=== PATIENT | male | born 1940 | race Caucasian/White ===

== ENCOUNTER → 2017-10-24 | Outpatient (CLI) | payer MEDICARE | END | disposition home or self-care (01) | LOC: CVU 07:32 | PROVIDERS: ATTEND Internal Medicine | DX: E11.40 Type 2 diabetes mellitus with diabetic neuropathy, unspecified (principal); R20.0 Anesthesia of skin; R09.89 Other specified symptoms and signs involving the circulatory and respiratory systems; E78.5 Hyperlipidemia, unspecified; Z87.891 Personal history of nicotine dependence; Z95.2 Presence of prosthetic heart valve | CPT/HCPCS: 93922 ==

== ENCOUNTER 2018-09-16 15:39 | Outpatient (CLI) | payer MEDICARE ==
[2018-09-16] MEDS ORDERED: OMNIPAQUE 350 MG/ML, 150 ML BOTTLE ONE (17:13)
== END 2018-09-28 13:05 | disposition home or self-care (01) ==
LOC: RAD 15:39
PROVIDERS: ATTEND Physician Assistant Surgical
DX: N26.1 Atrophy of kidney (terminal) (principal); N20.0 Calculus of kidney; I70.1 Atherosclerosis of renal artery; R31.0 Gross hematuria
CPT/HCPCS: 74178; Q9967

== ENCOUNTER 2019-03-15 05:29 | Day surgery (SDC) | payer MEDICARE ==
[2019-03-02 14:33] VITALS: BP 133/66
[~2019-03-15] VITALS: Ht 176.5 cm; Wt 108.8 kg
[~2019-03-15 05:29] MED LIST: AMLO-150 PO; AREDS PO; CARV12.52 PO; CHLO25TA PO; GLIP5TAB22 PO; HYDR-3245 PO; INSU100V8 SQ; LISI40TA PO; METF500T17 PO; SIMV10TA3 PO; WARF-36 PO
[2019-03-15] MEDS ORDERED: LACTATED RINGERS 1,000 ML IV SCH (05:57)
[2019-03-15 06:01] VITALS: BP 133/66
[2019-03-15 06:44] LABS: INTERNATIONAL NORMALIZED RATIO 1.23 (0.93-1.1); PROTHROMBIN TIME 12.8 Seconds (9.6-11.5)
[2019-03-15] MEDS ORDERED: D5%-0.9% NACL 1,000 ML IV SCH (07:00)
[2019-03-15] MEDS ORDERED: DEXAMETHASONE 4 MG/ML, 1ML ONE (07:11)
[2019-03-15] MEDS ORDERED: FENTANYL PF 250 MCG/5ML ONE (07:11)
[2019-03-15] MEDS ORDERED: PROPOFOL 10 MG/ML, 20ML ONE (07:11)
[2019-03-15] MEDS ORDERED: GLYCOPYRROLATE 0.2MG/1ML, 5ML ONE (07:11)
[2019-03-15] MEDS ORDERED: ROCURONIUM 10MG/ML,5ML ONE (07:11)
[2019-03-15] MEDS ORDERED: LIDOCAINE 2% 100MG/5ML SYRINGE ONE (07:22)
[2019-03-15] MEDS ORDERED: AMPICILLIN 2 GM ONE (07:32)
[2019-03-15] MEDS ORDERED: GENTAMICIN 80 MG/2 ML ONE (07:32)
[2019-03-15] MEDS ORDERED: MORPHINE SULFATE 4 MG/ML, 1ML IVPush PRN (08:00)
[2019-03-15] MEDS ORDERED: MIDAZOLAM 1 MG/ML, 2ML IV PRN (08:00)
[2019-03-15] MEDS ORDERED: HYDROmorphone 2 MG/ML, 1ML IVPush PRN (08:00)
[2019-03-15] MEDS ORDERED: LABETALOL 5MG/ML, 20ML IV PRN (08:00)
[2019-03-15] MEDS ORDERED: EPHEDRINE 50 MG/ML, 1ML IVPush PRN (08:00)
[2019-03-15] MEDS ORDERED: MEPERIDINE/PF 25MG/0.5ML IVPush PRN (08:00)
[2019-03-15] MEDS ORDERED: FENTANYL PF 100 MCG/2ML IV PRN (08:00)
[2019-03-15] MEDS ORDERED: METOCLOPRAMIDE 5 MG/ML, 2ML IV PRN (08:00)
[2019-03-15] MEDS ORDERED: OXYcodone 5 MG/5 ML ORAL.SOL UDC PO PRN (08:00)
[2019-03-15] MEDS ORDERED: hydrALAzine 20 MG/ML, 1ML IV PRN (08:00)
[2019-03-15] MEDS ORDERED: DIPHENHYDRAMINE 50 MG/ML, 1ML IVPush PRN (08:00)
[2019-03-15] MEDS ORDERED: ALBUTEROL/IPRATROPIUM 2.5MG/0.5MG, 3 ML NPPB PRN (08:00)
[2019-03-15] MEDS ORDERED: ONDANSETRON ODT 8 MG PO PRN (08:00)
[2019-03-15] MEDS ORDERED: DEXAMETHASONE 4 MG/ML, 1ML IV PRN (08:00)
[2019-03-15] MEDS ORDERED: EPHEDRINE 50 MG/ML, 1ML ONE (08:06)
[2019-03-15] MEDS ORDERED: FLUORESCEIN SODIUM 500 MG/5 ML ONE (08:10)
[2019-03-15] MEDS ORDERED: ACETAMINOPHEN 325 MG TABLET ONE (09:26)
[2019-03-15] MEDS ORDERED: ACETAMINOPHEN 325 MG TABLET PO PRN (09:30)
== END 2019-03-15 11:30 | disposition home or self-care (01) ==
LOC: OUT 05:29
PROVIDERS: ATTEND Urology
DX: N35.912 Unspecified bulbous urethral stricture, male (principal); N30.31 Trigonitis with hematuria; N40.1 Benign prostatic hyperplasia with lower urinary tract symptoms; N39.498 Other specified urinary incontinence; I10 Essential (primary) hypertension; E11.9 Type 2 diabetes mellitus without complications; Z79.4 Long term (current) use of insulin; Z79.01 Long term (current) use of anticoagulants; Z79.899 Other long term (current) drug therapy; Z85.47 Personal history of malignant neoplasm of testis; Z90.49 Acquired absence of other specified parts of digestive tract; Z96.641 Presence of right artificial hip joint; Z95.2 Presence of prosthetic heart valve; Z98.890 Other specified postprocedural states; Z84.1 Family history of disorders of kidney and ureter; Z80.0 Family history of malignant neoplasm of digestive organs; Z82.49 Family history of ischemic heart disease and other diseases of the circulatory system
CPT/HCPCS: 36415; 52204; 52276; 82962; 85610; 85730; 88305; C1769; J0290; J1100; J1580; J2704; J3010; J7042; J7120

== ENCOUNTER 2019-06-27 07:29 | Inpatient (IN) | payer MEDICARE ==
[2019-06-27] VITALS (11 sets, daily range): BP systolic 111–168; BP diastolic 40–85
[~2019-06-27] VITALS: Ht 177.8 cm; Wt 106.0 kg
--- NOTE | 2019-06-27 07:38 | NUR ---
BIB EMS FOR POSSIBLE BLOODY STOOL. PT STATES HE HAD BLOODY NOSE YESTERDAY. PT VS STABLE. SOME NAUSEA, GIVEN ZOFRAN BY EMS. MD AT BEDISED. PT IS NOT IN DISTRESS. AT BEDSIDE. NO ACTIVE BLEEDING
[2019-06-27] MEDS ORDERED: SODIUM CHLORIDE FLUSH 10ML SYR IVF ONE (08:00)
[2019-06-27 08:16] LABS: ALBUMIN 2.9 g/dL (3.4-5.0); ANION GAP 10 mmol/L (5-15); CALCIUM 9.5 mg/dL (8.5-10.1); CHLORIDE 105 mmol/L (98-107)
[2019-06-27 08:18] LABS: ALANINE AMINOTRANSFERASE 9 U/L (12-78); ALKALINE PHOSPHATASE 51 U/L (45-117); BILIRUBIN,TOTAL 0.4 mg/dL (0.2-1.0); MEAN CORPUSCULAR HEMOGLOBIN 28.9 pg (27.5-34.5); MEAN CORPUSCULAR HGB CONC 33.2 g/dL (33.2-36.2); MEAN CORPUSCULAR VOLUME 87.1 fL (81-97); PLATELET COUNT 199 x10^3/uL (130-400); RED BLOOD COUNT 2.56 x10^6/uL (4.38-5.82); RED CELL DISTRIBUTION WIDTH 16.3 % (9.4-14.8); TOTAL PROTEIN 6.5 g/dL (6.4-8.2)
--- NOTE | 2019-06-27 08:23 | NUR ---
CRIT LAB VALUES. AWARE.
[2019-06-27 08:33] LABS: BASOPHILS # (AUTO) 0.01 x10^3/uL (0-0.1); BASOPHILS % (AUTO) 0 % (0-1); EOSINOPHILS # (AUTO) 0.24 x10^3/uL (0-0.4); EOSINOPHILS % (AUTO) 5 % (1-7); LYMPHOCYTES # (AUTO) 0.86 x10^3/uL (1-3.4); LYMPHOCYTES % (AUTO) 17 % (22-44); MD MORPH REVIEW ONLY; MONOCYTES # (AUTO) 0.82 x10^3/uL (0.2-0.8); MONOCYTES % (AUTO) 16 % (2-9); NEUTROPHILS # (AUTO) 3.24 x10^3/uL (1.8-6.8); NEUTROPHILS % (AUTO) 63 % (42-75)
[2019-06-27 08:48] LABS: INTERNATIONAL NORMALIZED RATIO > 12.00 (0.93-1.1); PROTHROMBIN TIME > 148.7 Seconds (9.6-11.5)
[2019-06-27 08:50] LABS: <PLATELET ESTIMATE> ADEQUATE; <PLT MORPHOLOGY> NORMAL PLT MORPH; ANISOCYTOSIS 1+; HYPOCHROMIA 1+; STOMATOCYTES 1+
--- NOTE | 2019-06-27 09:10 | NUR ---
FFP TRANSFUSION STARTED. SECOND IV ESTABLISHED. PT VS STABLE. PT ASSISTED TO COMMODE. GINNA COLOR STOOL
--- NOTE | 2019-06-27 09:41 | NUR ---
RBC STARTED. MD AT BEDSIDE. PT IS RESTING COMFORTABLE. VS STABLE.
[2019-06-27] MEDS ORDERED: PHYTONADIONE 10 MG/ML, 1ML ONE (09:53)
[2019-06-27] MEDS ORDERED: ONDANSETRON 2MG/ML, 2ML ONE ×2 (09:53→17:21)
--- NOTE | 2019-06-27 09:59 | NUR ---
REPORT GIVEN TO AMRIK
[2019-06-27] MEDS ORDERED: PHYTONADIONE 10 MG/ML, 1ML IV ONE (10:00)
[2019-06-27] MEDS ORDERED: ACETAMINOPHEN 325 MG TABLET PO PRN (12:00)
[2019-06-27] MEDS: D5%-0.45% NACL 1,000 ML IV SCH ×2 (12:02→20:38)
[2019-06-27 14:35] LABS: HEMOGLOBIN A1C 5.1 % (4.2-6.3)
[2019-06-27 15:58] LABS: CLOSTRIDIUM DIFFICILE ANTIGEN NEGATIVE; CLOSTRIDIUM DIFFICILE TOXIN NEGATIVE (Negative)
[2019-06-27] MEDS: INSULIN LISPRO 100 UNITS/ML, PEN SQ-INSULIN SCH ×2 (16:00→20:38)
[2019-06-27] MEDS: ONDANSETRON 2MG/ML, 2ML IVPush PRN (17:25)
[2019-06-27] MEDS: SIMVASTATIN 10 MG TABLET PO SCH (20:37)
[2019-06-27] MEDS: CARVEDILOL 12.5 MG TABLET PO SCH (20:37)
[2019-06-28 01:33] VITALS: BP 128/51
[2019-06-28 02:34] LABS: INTERNATIONAL NORMALIZED RATIO 1.3 (0.93-1.1); PROTHROMBIN TIME 13.5 Seconds (9.6-11.5)
[2019-06-28 02:36] LABS: ALBUMIN 2.6 g/dL (3.4-5.0); ANION GAP 8 mmol/L (5-15); CALCIUM 8.5 mg/dL (8.5-10.1); CHLORIDE 108 mmol/L (98-107); CREATININE 2.66 mg/dL (0.7-1.3)
[2019-06-28] MEDS: D5%-0.45% NACL 1,000 ML IV SCH (05:52)
[2019-06-28 06:40] VITALS: BP 129/59
[2019-06-28] MEDS: INSULIN LISPRO 100 UNITS/ML, PEN SQ-INSULIN SCH ×4 (07:00→20:32)
[2019-06-28] MEDS: CARVEDILOL 12.5 MG TABLET PO SCH ×2 (08:25→20:31)
[2019-06-28] MEDS: AMLODIPINE 5 MG TABLET PO SCH (08:25)
[2019-06-28] MEDS: SODIUM CHLORIDE 0.9% 1,000 ML IV SCH (08:25)
[2019-06-28] MEDS ORDERED: GLIPizide ER 5 MG TABLET PO SCH (09:00)
[2019-06-28 12:43] VITALS: BP 117/52
[2019-06-28] MEDS ORDERED: HYDROcodone/APAP 10/325 MG TABLET ONE (15:34)
[2019-06-28] MEDS: HYDROcodone/APAP 10/325 MG TABLET PO PRN (15:38)
[2019-06-28] MEDS ORDERED: MOVIPREP POWDER 1 PREP KIT PO ONE (18:30)
[2019-06-28 19:03] VITALS: BP 157/73
[2019-06-28] MEDS: SIMVASTATIN 10 MG TABLET PO SCH (20:31)
[2019-06-28] MEDS: ONDANSETRON 2MG/ML, 2ML IVPush PRN (21:32)
[2019-06-29] MEDS: SODIUM CHLORIDE 0.9% 1,000 ML IV SCH (01:30)
[2019-06-29 01:41] VITALS: BP 149/63
[2019-06-29 04:47] LABS: BASOPHILS # (AUTO) 0.01 x10^3/uL (0-0.1); BASOPHILS % (AUTO) 0 % (0-1); EOSINOPHILS # (AUTO) 0.24 x10^3/uL (0-0.4); EOSINOPHILS % (AUTO) 6 % (1-7); LYMPHOCYTES # (AUTO) 0.79 x10^3/uL (1-3.4); LYMPHOCYTES % (AUTO) 20 % (22-44); MD NO; MEAN CORPUSCULAR HEMOGLOBIN 29.4 pg (27.5-34.5); MEAN CORPUSCULAR HGB CONC 33.6 g/dL (33.2-36.2); MEAN CORPUSCULAR VOLUME 87.3 fL (81-97); MEAN PLATELET VOLUME 7.4 fL (7.4-10.4); MONOCYTES # (AUTO) 0.67 x10^3/uL (0.2-0.8); MONOCYTES % (AUTO) 17 % (2-9); NEUTROPHILS # (AUTO) 2.19 x10^3/uL (1.8-6.8); NEUTROPHILS % (AUTO) 56 % (42-75); PLATELET COUNT 178 x10^3/uL (130-400); RED BLOOD COUNT 2.87 x10^6/uL (4.38-5.82); RED CELL DISTRIBUTION WIDTH 17.1 % (9.4-14.8)
[2019-06-29 04:49] LABS: ANION GAP 9 mmol/L (5-15); CALCIUM 8.9 mg/dL (8.5-10.1); CHLORIDE 111 mmol/L (98-107); CREATININE 2.25 mg/dL (0.7-1.3); TOTAL IRON BINDING CAPACITY 193 mcg/dL (250-450)
[2019-06-29 04:50] LABS: % IRON SATURATION 17 % (20-55); IRON LEVEL 32 mcg/dL (65-175)
[2019-06-29] MEDS: INSULIN LISPRO 100 UNITS/ML, PEN SQ-INSULIN SCH ×4 (07:00→21:00)
[2019-06-29 07:03] VITALS: BP 129/91
[2019-06-29] MEDS: LACTOBACILLUS CHEW TABLET PO SCH ×3 (08:00→21:17)
[2019-06-29] MEDS: CARVEDILOL 12.5 MG TABLET PO SCH ×2 (08:01→21:17)
[2019-06-29] MEDS: FERROUS SULFATE 325 MG TABLET PO SCH (08:01)
[2019-06-29] MEDS: AMLODIPINE 5 MG TABLET PO SCH (08:02)
[2019-06-29] MEDS ORDERED: PROPOFOL 10 MG/ML, 20ML ONE (11:13)
[2019-06-29] MEDS ORDERED: FENTANYL PF 100 MCG/2ML ONE ×2 (12:09→13:49)
[2019-06-29] MEDS: FENTANYL PF 100 MCG/2ML IV PRN ×2 (12:11→12:20)
[2019-06-29] MEDS ORDERED: ACETAMINOPHEN 325 MG TABLET PO PRN (12:30)
[2019-06-29] MEDS ORDERED: ONDANSETRON 2MG/ML, 2ML IV PRN (12:30)
[2019-06-29] MEDS ORDERED: LIDOCAINE 1%, 10ML ONE (13:42)
[2019-06-29] MEDS ORDERED: MIDAZOLAM 1 MG/ML, 5ML ONE (13:49)
[2019-06-29 14:53] VITALS: BP 157/63
[2019-06-29 19:14] VITALS: BP 128/61
[2019-06-29] MEDS ORDERED: LACTOBACILLUS CHEW TABLET PO SCH (21:00)
[2019-06-29] MEDS: SIMVASTATIN 10 MG TABLET PO SCH (21:16)
[2019-06-30 00:57] VITALS: BP 130/55
[2019-06-30 05:21] LABS: BASOPHILS # (AUTO) 0.01 x10^3/uL (0-0.1); BASOPHILS % (AUTO) 0 % (0-1); EOSINOPHILS # (AUTO) 0.16 x10^3/uL (0-0.4); EOSINOPHILS % (AUTO) 4 % (1-7); LYMPHOCYTES # (AUTO) 0.72 x10^3/uL (1-3.4); LYMPHOCYTES % (AUTO) 18 % (22-44); MD NO; MEAN CORPUSCULAR HEMOGLOBIN 29.6 pg (27.5-34.5); MEAN CORPUSCULAR HGB CONC 33.8 g/dL (33.2-36.2); MEAN CORPUSCULAR VOLUME 87.4 fL (81-97); MEAN PLATELET VOLUME 7.8 fL (7.4-10.4); MONOCYTES # (AUTO) 0.65 x10^3/uL (0.2-0.8); MONOCYTES % (AUTO) 16 % (2-9); NEUTROPHILS # (AUTO) 2.44 x10^3/uL (1.8-6.8); NEUTROPHILS % (AUTO) 61 % (42-75); PLATELET COUNT 185 x10^3/uL (130-400); RED BLOOD COUNT 2.82 x10^6/uL (4.38-5.82)
[2019-06-30 05:27] LABS: ANION GAP 10 mmol/L (5-15); CALCIUM 9.1 mg/dL (8.5-10.1); CHLORIDE 111 mmol/L (98-107); CREATININE 1.94 mg/dL (0.7-1.3)
[2019-06-30] MEDS: OMEPRAZOLE 20 MG CAPSULE.DR PO SCH (05:55)
[2019-06-30] MEDS: INSULIN LISPRO 100 UNITS/ML, PEN SQ-INSULIN SCH ×4 (07:00→20:28)
[2019-06-30] MEDS ORDERED: HEPARIN 5,000 UNITS/ML, 1ML IV ONE (08:00)
[2019-06-30 09:15] VITALS: BP 153/72
[2019-06-30] MEDS: LACTOBACILLUS CHEW TABLET PO SCH ×3 (09:27→22:17)
[2019-06-30] MEDS: CARVEDILOL 12.5 MG TABLET PO SCH ×2 (09:27→22:17)
[2019-06-30] MEDS: HEPARIN 25,000 UNITS/500ML PMX 500 ML IV PRN (10:30)
[2019-06-30] MEDS: HYDROcodone/APAP 10/325 MG TABLET PO PRN (10:40)
[2019-06-30 14:55] VITALS: BP 147/67
[2019-06-30] MEDS: HEPARIN 5,000 UNITS/ML, 1ML IV PRN (17:35)
[2019-06-30 19:11] VITALS: BP 106/59
[2019-06-30] MEDS: SODIUM CHLORIDE 0.9% 1,000 ML IV SCH ×2 (20:27)
[2019-06-30] MEDS: SIMVASTATIN 10 MG TABLET PO SCH (22:17)
[2019-07-01 00:23] VITALS: BP 107/68
[2019-07-01] MEDS: ONDANSETRON ODT 4 MG PO PRN ×2 (00:55→10:06)
[2019-07-01] MEDS: HEPARIN 5,000 UNITS/ML, 1ML IV PRN ×2 (00:56→09:58)
[2019-07-01 05:49] LABS: BASOPHILS % (AUTO) 0 % (0-1); EOSINOPHILS # (AUTO) 0.16 x10^3/uL (0-0.4); EOSINOPHILS % (AUTO) 4 % (1-7); LYMPHOCYTES # (AUTO) 0.73 x10^3/uL (1-3.4); LYMPHOCYTES % (AUTO) 17 % (22-44); MD NO; MEAN CORPUSCULAR HEMOGLOBIN 29.8 pg (27.5-34.5); MEAN CORPUSCULAR HGB CONC 33.4 g/dL (33.2-36.2); MEAN CORPUSCULAR VOLUME 89.1 fL (81-97); MEAN PLATELET VOLUME 8.5 fL (7.4-10.4); MONOCYTES # (AUTO) 0.66 x10^3/uL (0.2-0.8); MONOCYTES % (AUTO) 15 % (2-9); NEUTROPHILS # (AUTO) 2.77 x10^3/uL (1.8-6.8); NEUTROPHILS % (AUTO) 64 % (42-75); PLATELET COUNT 182 x10^3/uL (130-400); RED BLOOD COUNT 2.88 x10^6/uL (4.38-5.82); RED CELL DISTRIBUTION WIDTH 17.3 % (9.4-14.8)
[2019-07-01 06:00] LABS: ANION GAP 8 mmol/L (5-15); CALCIUM 9.4 mg/dL (8.5-10.1); CHLORIDE 108 mmol/L (98-107); CREATININE 1.81 mg/dL (0.7-1.3)
[2019-07-01] MEDS: HEPARIN 25,000 UNITS/500ML PMX 500 ML IV PRN (06:22)
[2019-07-01] MEDS: OMEPRAZOLE 20 MG CAPSULE.DR PO SCH (06:22)
[2019-07-01] MEDS ORDERED: WARFARIN MECH. VALVE PROTOCOL 2.5 to 3.5 XX PRN (07:30)
[2019-07-01 07:52] LABS: INTERNATIONAL NORMALIZED RATIO 1.27 (0.93-1.1); PROTHROMBIN TIME 13.2 Seconds (9.6-11.5)
[2019-07-01] MEDS: CARVEDILOL 12.5 MG TABLET PO SCH ×2 (08:38→22:08)
[2019-07-01] MEDS: FERROUS SULFATE 325 MG TABLET PO SCH (08:38)
[2019-07-01] MEDS: LACTOBACILLUS CHEW TABLET PO SCH ×3 (08:38→22:08)
[2019-07-01] MEDS: INSULIN LISPRO 100 UNITS/ML, PEN SQ-INSULIN SCH ×4 (10:22→21:00)
[2019-07-01] MEDS: HYDROcodone/APAP 10/325 MG TABLET PO PRN (10:22)
[2019-07-01 10:42] VITALS: BP 133/68
[2019-07-01] MEDS ORDERED: SIMETHICONE DROPS 40 MG/0.6 ML BOTTLE PO PRN (13:30)
[2019-07-01] MEDS: SIMETHICONE 80 MG CHEW TAB PO PRN ×2 (14:00→22:13)
[2019-07-01 15:57] VITALS: BP 155/67
[2019-07-01] MEDS ORDERED: WARFARIN 7.5 MG TABLET PO-COUM ONE (18:00)
[2019-07-01 19:36] VITALS: BP 146/67
[2019-07-01] MEDS: SIMVASTATIN 10 MG TABLET PO SCH (22:08)
[2019-07-01] MEDS: ACETAMINOPHEN 325 MG TABLET PO PRN (22:13)
[2019-07-02 00:46] VITALS: BP 124/64
[2019-07-02] MEDS: HEPARIN 25,000 UNITS/500ML PMX 500 ML IV PRN ×2 (00:57→19:31)
[2019-07-02] MEDS: ONDANSETRON ODT 4 MG PO PRN (01:24)
[2019-07-02 05:12] LABS: INTERNATIONAL NORMALIZED RATIO 1.62 (0.93-1.1); PROTHROMBIN TIME 16.7 Seconds (9.6-11.5)
[2019-07-02 05:17] LABS: BASOPHILS % (AUTO) 0 % (0-1); EOSINOPHILS % (AUTO) 2 % (1-7); LYMPHOCYTES % (AUTO) 13 % (22-44); MD NO; MEAN CORPUSCULAR HEMOGLOBIN 29.7 pg (27.5-34.5); MEAN CORPUSCULAR HGB CONC 33.3 g/dL (33.2-36.2); MEAN CORPUSCULAR VOLUME 89.1 fL (81-97); MEAN PLATELET VOLUME 8.4 fL (7.4-10.4); MONOCYTES # (AUTO) 0.67 x10^3/uL (0.2-0.8); MONOCYTES % (AUTO) 14 % (2-9); NEUTROPHILS # (AUTO) 3.45 x10^3/uL (1.8-6.8); NEUTROPHILS % (AUTO) 72 % (42-75); PLATELET COUNT 187 x10^3/uL (130-400); RED BLOOD COUNT 2.79 x10^6/uL (4.38-5.82); RED CELL DISTRIBUTION WIDTH 17.2 % (9.4-14.8)
[2019-07-02] MEDS: HEPARIN 5,000 UNITS/ML, 1ML IV PRN (05:59)
[2019-07-02] MEDS: OMEPRAZOLE 20 MG CAPSULE.DR PO SCH (05:59)
[2019-07-02 07:32] VITALS: BP 145/71
[2019-07-02] MEDS: INSULIN LISPRO 100 UNITS/ML, PEN SQ-INSULIN SCH ×4 (08:52→21:17)
[2019-07-02] MEDS ORDERED: METHYLNALTREXONE 12 MG/0.6 ML SQ ONE (09:30)
[2019-07-02] MEDS: LACTOBACILLUS CHEW TABLET PO SCH ×3 (09:48→21:16)
[2019-07-02] MEDS: CARVEDILOL 12.5 MG TABLET PO SCH ×2 (09:48→21:17)
[2019-07-02] MEDS: ACETAMINOPHEN 325 MG TABLET PO PRN (09:48)
[2019-07-02] MEDS ORDERED: MORPHINE SULFATE 4 MG/ML, 1ML ONE (11:45)
[2019-07-02] MEDS ORDERED: morphine SULFATE 10 MG/ML, 1ML IVPush PRN (12:00)
[2019-07-02 12:29] LABS: BILIRUBIN, DIRECT 0.3 mg/dL (0.1-0.2); BILIRUBIN,INDIRECT 0.3 mg/dL (0.0-2.0); BILIRUBIN,TOTAL 0.6 mg/dL (0.2-1.0); TOTAL PROTEIN 6.7 g/dL (6.4-8.2)
[2019-07-02 14:05] VITALS: BP 142/64
[2019-07-02] MEDS ORDERED: FENTANYL PF 100 MCG/2ML ONE ×2 (14:34)
[2019-07-02] MEDS ORDERED: NALOXONE 1 MG/ML, 2ML ONE (14:34)
[2019-07-02] MEDS ORDERED: WARFARIN 10 MG TABLET PO-COUM SCH (18:00)
[2019-07-02 20:55] VITALS: BP 134/63
[2019-07-02] MEDS: MORPHINE SULFATE 4 MG/ML, 1ML IVPush PRN (21:16)
[2019-07-02] MEDS: SIMVASTATIN 10 MG TABLET PO SCH (21:17)
[2019-07-02] MEDS: SENNA/DOCUSATE TABLET PO SCH (21:17)
[2019-07-03 00:19] VITALS: BP 117/55
[2019-07-03 04:57] LABS: BASOPHILS # (AUTO) 0.01 x10^3/uL (0-0.1); BASOPHILS % (AUTO) 0 % (0-1); EOSINOPHILS # (AUTO) 0.08 x10^3/uL (0-0.4); EOSINOPHILS % (AUTO) 2 % (1-7); LYMPHOCYTES # (AUTO) 0.64 x10^3/uL (1-3.4); LYMPHOCYTES % (AUTO) 13 % (22-44); MD NO; MEAN CORPUSCULAR HEMOGLOBIN 29.7 pg (27.5-34.5); MEAN CORPUSCULAR HGB CONC 33.4 g/dL (33.2-36.2); MEAN CORPUSCULAR VOLUME 88.9 fL (81-97); MEAN PLATELET VOLUME 8.4 fL (7.4-10.4); MONOCYTES # (AUTO) 0.78 x10^3/uL (0.2-0.8); MONOCYTES % (AUTO) 15 % (2-9); NEUTROPHILS # (AUTO) 3.56 x10^3/uL (1.8-6.8); NEUTROPHILS % (AUTO) 70 % (42-75); PLATELET COUNT 174 x10^3/uL (130-400); RED BLOOD COUNT 2.66 x10^6/uL (4.38-5.82); RED CELL DISTRIBUTION WIDTH 17.5 % (9.4-14.8)
[2019-07-03] MEDS: OMEPRAZOLE 20 MG CAPSULE.DR PO SCH (06:10)
[2019-07-03] MEDS: MORPHINE SULFATE 4 MG/ML, 1ML IVPush PRN ×3 (06:11→19:13)
[2019-07-03] MEDS: SODIUM CHLORIDE 0.9% 1,000 ML IV SCH (08:00)
[2019-07-03 08:32] VITALS: BP 130/66
[2019-07-03] MEDS: INSULIN LISPRO 100 UNITS/ML, PEN SQ-INSULIN SCH ×4 (09:22→20:40)
[2019-07-03] MEDS: CARVEDILOL 12.5 MG TABLET PO SCH ×2 (09:22→20:40)
[2019-07-03] MEDS: LACTOBACILLUS CHEW TABLET PO SCH ×3 (09:22→20:40)
[2019-07-03] MEDS: FERROUS SULFATE 325 MG TABLET PO SCH (09:22)
[2019-07-03] MEDS: HEPARIN 25,000 UNITS/500ML PMX 500 ML IV PRN (10:47)
[2019-07-03 12:59] VITALS: BP 118/54
[2019-07-03 19:23] VITALS: BP 134/72
[2019-07-03] MEDS: SENNA/DOCUSATE TABLET PO SCH (20:40)
[2019-07-03] MEDS: SIMVASTATIN 10 MG TABLET PO SCH (20:40)
[2019-07-04] MEDS: SODIUM CHLORIDE 0.9% 1,000 ML IV SCH (00:58)
[2019-07-04 01:05] VITALS: BP 124/72
[2019-07-04] MEDS: MORPHINE SULFATE 4 MG/ML, 1ML IVPush PRN ×3 (01:21→15:40)
[2019-07-04 02:00] LABS: MICROSCOPIC INDICATED
[2019-07-04 02:02] LABS: CULTURE INDICATED? NO
[2019-07-04] MEDS: HEPARIN 25,000 UNITS/500ML PMX 500 ML IV PRN (03:19)
[2019-07-04 04:50] LABS: MEAN CORPUSCULAR HEMOGLOBIN 29.7 pg (27.5-34.5); MEAN CORPUSCULAR VOLUME 89.8 fL (81-97); MEAN PLATELET VOLUME 8.4 fL (7.4-10.4); PLATELET COUNT 166 x10^3/uL (130-400); RED BLOOD COUNT 2.54 x10^6/uL (4.38-5.82); RED CELL DISTRIBUTION WIDTH 17.9 % (9.4-14.8)
[2019-07-04] MEDS: HEPARIN 5,000 UNITS/ML, 1ML IV PRN (05:13)
[2019-07-04] MEDS: OMEPRAZOLE 20 MG CAPSULE.DR PO SCH (05:13)
[2019-07-04 05:51] LABS: BASOPHILS # (AUTO) 0.01 x10^3/uL (0-0.1); BASOPHILS % (AUTO) 0 % (0-1); EOSINOPHILS # (AUTO) 0.09 x10^3/uL (0-0.4); EOSINOPHILS % (AUTO) 2 % (1-7); LYMPHOCYTES # (AUTO) 0.62 x10^3/uL (1-3.4); LYMPHOCYTES % (AUTO) 12 % (22-44); MD SCAN; MONOCYTES # (AUTO) 0.86 x10^3/uL (0.2-0.8); MONOCYTES % (AUTO) 17 % (2-9); NEUTROPHILS % (AUTO) 68 % (42-75)
[2019-07-04 07:42] VITALS: BP 103/53
[2019-07-04] MEDS: INSULIN LISPRO 100 UNITS/ML, PEN SQ-INSULIN SCH ×3 (09:08→16:00)
[2019-07-04] MEDS: LACTOBACILLUS CHEW TABLET PO SCH ×2 (09:09→16:00)
[2019-07-04] MEDS: CARVEDILOL 12.5 MG TABLET PO SCH (09:09)
[2019-07-04] MEDS ORDERED: ACID1TAB7 PO (11:08)
[2019-07-04] MEDS ORDERED: SIME80TA16 PO (11:08)
[2019-07-04] MEDS ORDERED: SENN-193 PO (11:08)
[2019-07-04] MEDS ORDERED: OMEP-110 PO (11:08)
[2019-07-04] MEDS ORDERED: ACET325T26 PO (11:08)
[2019-07-04] MEDS ORDERED: FERR-51 PO (11:08)
[2019-07-04 14:45] VITALS: BP 124/60
== END 2019-07-04 17:35 | disposition hospice, home (50) | DRG 377 ==
LOC: ED 08:13 → EDIP 09:36 → 4WST 10:44
PROVIDERS: ADMIT Internal Medicine; ATTEND Internal Medicine
PROC: 30233R1 Transfusion of Nonautologous Platelets into Peripheral Vein, Percutaneous Approach (ICD-10-PCS; 2019-06-27)
PROC: 30233N1 Transfusion of Nonautologous Red Blood Cells into Peripheral Vein, Percutaneous Approach (ICD-10-PCS; 2019-06-27)
PROC: 0JB53ZX Excision of Left Neck Subcutaneous Tissue and Fascia, Percutaneous Approach, Diagnostic (ICD-10-PCS; 2019-06-29)
PROC: 0DB78ZX Excision of Stomach, Pylorus, Via Natural or Artificial Opening Endoscopic, Diagnostic (ICD-10-PCS; principal; 2019-06-29 17:45)
PROC: 0DJD8ZZ Inspection of Lower Intestinal Tract, Via Natural or Artificial Opening Endoscopic (ICD-10-PCS; 2019-06-29 17:45)
PROC: 07DR3ZX Extraction of Iliac Bone Marrow, Percutaneous Approach, Diagnostic (ICD-10-PCS; 2019-07-02)
DX: K29.01 Acute gastritis with bleeding (principal); N17.0 Acute kidney failure with tubular necrosis; C83.30 Diffuse large B-cell lymphoma, unspecified site; D68.32 Hemorrhagic disorder due to extrinsic circulating anticoagulants; D62 Acute posthemorrhagic anemia; D68.69 Other thrombophilia; K56.7 Ileus, unspecified; N18.4 Chronic kidney disease, stage 4 (severe); K92.1 Melena; K57.30 Diverticulosis of large intestine without perforation or abscess without bleeding; E11.22 Type 2 diabetes mellitus with diabetic chronic kidney disease; E11.65 Type 2 diabetes mellitus with hyperglycemia; E63.9 Nutritional deficiency, unspecified; E66.9 Obesity, unspecified; E78.5 Hyperlipidemia, unspecified; G47.30 Sleep apnea, unspecified; I12.9 Hypertensive chronic kidney disease with stage 1 through stage 4 chronic kidney disease, or unspecified chronic kidney disease; I44.7 Left bundle-branch block, unspecified; K22.2 Esophageal obstruction; K64.8 Other hemorrhoids; K80.20 Calculus of gallbladder without cholecystitis without obstruction; Z96.642 Presence of left artificial hip joint; M19.90 Unspecified osteoarthritis, unspecified site; E79.0 Hyperuricemia without signs of inflammatory arthritis and tophaceous disease; N27.0 Small kidney, unilateral; R04.0 Epistaxis; T45.515A Adverse effect of anticoagulants, initial encounter; Z79.01 Long term (current) use of anticoagulants; Z79.4 Long term (current) use of insulin; Z80.0 Family history of malignant neoplasm of digestive organs; Z86.010 Personal history of colon polyps; Z87.891 Personal history of nicotine dependence; Z90.411 Acquired partial absence of pancreas; Z95.2 Presence of prosthetic heart valve; Z79.899 Other long term (current) drug therapy; Z68.33 Body mass index [BMI] 33.0-33.9, adult; Y90.8 Blood alcohol level of 240 mg/100 ml or more
CPT/HCPCS: 20206; 36415; 36430; 38222; 70490; 74176; 76942; 77012; 78306; 80048; 80053; 80076; 81001; 82040; 82570; 82962; 83036; 83540; 83550; 83605; 83615; 84300; 84550; 84585; 85018; 85025; 85060; 85097; 85520; 85610; 86850; 86900; 86923; 87324; 88184; 88185; 88237; 88264; 88280; 88305; 88311; 88341; 88342; 88360; 88377; 93005; 93306; G0378; J1644; J2250; J2405; J2704; J3010; J3430; Q0162; A9503; J1815; J2270; J2310; J7030; P9016; P9017